=== PATIENT | female | born 1970 | race Hispanic/Latino ===

== ENCOUNTER 2017-04-16 16:05 | Emergency (ER) | payer OTHER ==
[2017-04-16 16:09] VITALS: BP 159/97; PULSE 90; RESP 18; TEMP 98.6; O2SAT 96
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
== END 2017-04-16 19:20 | disposition home or self-care (01) ==
LOC: H.ER 16:05
DX: M54.9 Dorsalgia, unspecified (principal); M25.551 Pain in right hip; V89.2XXA Person injured in unspecified motor-vehicle accident, traffic, initial encounter; Y92.410 Unspecified street and highway as the place of occurrence of the external cause
CPT/HCPCS: 72070; 72100; 73502; 96372; 99283; J1885